=== PATIENT | male | born 1955 | race Caucasian/White ===

== ENCOUNTER 2017-10-20 13:54 | Inpatient (IN) | payer OTHER ==
[~2017-10-20] VITALS: Ht 160 cm; Wt 78.0 kg
[~2017-10-20 13:54] MED LIST: DOCU-150 PO; GEMF600T3 PO; LIRA0.6P2 SUBCUT; METF500T4 PO; ZET10 PO
[2017-10-21 00:14] LABS: CLARITY URINE CLEAR (CLEAR); COLOR URINE YELLOW (YELLOW); KETONES URINE NEGATIVE (NEGATIVE); LEUKOCYTE ESTERASE URINE NEGATIVE (NEGATIVE); NITRITE URINE NEGATIVE (NEGATIVE); OCCULT BLOOD URINE NEGATIVE (NEGATIVE); PH URINE 6.5 (4.5-8.0); PROTEIN URINE NEGATIVE (NEGATIVE); SPECIFIC GRAVITY URINE 1.022 (1.005-1.030); UROBILINOGEN URINE 0.2 E.U./dL (0.2-1.0)
[2017-10-21 00:19] LABS: BASOPHILS % 0.9 % (0.0-2.0); EOSINOPHILS % 1.6 % (0.0-5.0); HEMATOCRIT. 30.6 % (42.0-52.0); HEMOGLOBIN. 10.3 g/dL (14.0-18.0); LYMPHOCYTES % 21.9 % (20.0-50.0); MEAN CORPUSCULAR HEMOGLOBIN 29.6 pg (28.0-32.0); MEAN CORPUSCULAR VOLUME 87.8 fL (80.0-94.0); MEAN PLATELET VOLUME 7.5 fl (7.4-10.4); MONOCYTES % 9.3 % (2.0-8.0); NEUTROPHILS % 66.3 % (40.0-76.0); PLATELET 401 x1000/uL (130-400); RED BLOOD CELL COUNT 3.49 mill/uL (4.7-6.1); RED CELL DISTRIBUTION WIDTH 13.7 % (11.6-14.6)
[2017-10-21 00:34] LABS: CARBON DIOXIDE 28 mEq/L (21-32); CHLORIDE 101 mEq/L (98-107)
[2017-10-21] MEDS ORDERED: ENOXAPARIN 80MG/0.8ML SYR SUBCUT ONE (02:00)
[2017-10-21 08:30] VITALS: BP 126/88
[2017-10-21 09:30] VITALS: BP 126/88
[2017-10-21] MEDS: METFORMIN HCL 500MG TABLET PO SCH (11:06)
[2017-10-21] MEDS: EZETIMIBE 10MG TABLET PO SCH (11:06)
[2017-10-21] MEDS ORDERED: DEXTROSE 50% WATER 50ML SYRINGE IV PRN (11:15)
[2017-10-21 12:00] VITALS: BP 121/89
[2017-10-21 12:12] LABS: INR 1.1; PROTHROMBIN TIME 11.6 sec (9.4-11.6)
[2017-10-21] MEDS: BLOOD SUGAR DIAGNOSTIC STRIP TEST SCH ×3 (12:31→21:57)
[2017-10-21] MEDS: INSULIN LISPRO 100 UNITS/ML SUBCUT SCH ×3 (13:14→22:31)
[2017-10-21] MEDS: ENOXAPARIN 80MG/0.8ML SYR SUBCUT SCH (15:25)
[2017-10-21] MEDS: DOCUSATE SODIUM 100MG CAPSULE PO SCH (17:16)
[2017-10-21] MEDS: GEMFIBROZIL 600MG TABLET PO SCH (17:16)
[2017-10-21 17:19] VITALS: BP 124/83
[2017-10-21] MEDS ORDERED: VANCOMYCIN 1500MG in DEXTROSE 5% WATER 250ML IV SCH (18:30)
[2017-10-21 20:00] VITALS: BP 133/85
[2017-10-22] VITALS: BP 117/71
[2017-10-22 04:00] VITALS: BP 125/87
[2017-10-22] MEDS: VANCOMYCIN 750 MG PREMIX 150 ML IV SCH ×3 (04:07→22:35)
[2017-10-22] MEDS: ENOXAPARIN 80MG/0.8ML SYR SUBCUT SCH ×2 (07:07→14:26)
[2017-10-22] MEDS: BLOOD SUGAR DIAGNOSTIC STRIP TEST SCH ×4 (07:18→21:00)
[2017-10-22] MEDS: INSULIN LISPRO 100 UNITS/ML SUBCUT SCH ×4 (07:25→22:40)
[2017-10-22 08:00] VITALS: BP 127/88
[2017-10-22] MEDS: EZETIMIBE 10MG TABLET PO SCH (08:02)
[2017-10-22] MEDS: METFORMIN HCL 500MG TABLET PO SCH (08:02)
[2017-10-22] MEDS: DOCUSATE SODIUM 100MG CAPSULE PO SCH ×2 (08:02→17:15)
[2017-10-22] MEDS ORDERED: LIDOCAINE HCL 1% 20ML VIAL (Pyxis) INJ ONE (08:55)
[2017-10-22] MEDS ORDERED: SODIUM BICARBONATE 4% (2.4MEQ) 5ML VIAL IV ONE (08:55)
[2017-10-22 12:00] VITALS: BP 120/88
[2017-10-22 16:00] VITALS: BP 122/83
[2017-10-22] MEDS: GEMFIBROZIL 600MG TABLET PO SCH (17:15)
[2017-10-22 20:00] VITALS: BP 130/81
[2017-10-23] VITALS: BP 137/86
[2017-10-23 04:00] VITALS: BP 112/63
[2017-10-23 04:36] LABS: CARBON DIOXIDE 28 mEq/L (21-32); CHLORIDE 102 mEq/L (98-107); VANCOMYCIN TROUGH 20.9 ug/mL (5.0-10.0)
[2017-10-23] MEDS: BLOOD SUGAR DIAGNOSTIC STRIP TEST SCH ×3 (06:56→17:34)
[2017-10-23] MEDS: VANCOMYCIN 750 MG PREMIX 150 ML IV SCH ×2 (07:41→14:27)
[2017-10-23] MEDS: ENOXAPARIN 80MG/0.8ML SYR SUBCUT SCH ×2 (07:42→14:29)
[2017-10-23 08:00] VITALS: BP 120/87
[2017-10-23] MEDS: INSULIN LISPRO 100 UNITS/ML SUBCUT SCH ×3 (09:18→17:33)
[2017-10-23] MEDS: EZETIMIBE 10MG TABLET PO SCH (09:24)
[2017-10-23] MEDS: METFORMIN HCL 500MG TABLET PO SCH (09:24)
[2017-10-23] MEDS: DOCUSATE SODIUM 100MG CAPSULE PO SCH ×2 (09:24→17:10)
[2017-10-23 11:41] VITALS: BP 126/89
[2017-10-23 16:00] VITALS: BP 132/76
[2017-10-23] MEDS: GEMFIBROZIL 600MG TABLET PO SCH (17:28)
[2017-10-23 19:39] VITALS: BP 133/70
[2017-10-23] MEDS ORDERED: VANCOMYCIN 1 G PREMIX 200 ML IV SCH (23:30)
== END 2017-10-23 20:30 | disposition home or self-care (01) | DRG 299 ==
LOC: ER 16:01 → 6EST 10-21 02:26 → ENRESERV 10-21 07:04
PROVIDERS: ADMIT Internal Medicine; ATTEND Internal Medicine
PROC: 02HV33Z Insertion of Infusion Device into Superior Vena Cava, Percutaneous Approach (ICD-10-PCS; principal; 2017-10-22)
PROC: B5181ZA Fluoroscopy of Superior Vena Cava using Low Osmolar Contrast, Guidance (ICD-10-PCS; 2017-10-22)
PROC: B548ZZA Ultrasonography of Superior Vena Cava, Guidance (ICD-10-PCS; 2017-10-22)
PROC: 02PYX3Z Removal of Infusion Device from Great Vessel, External Approach (ICD-10-PCS; 2017-10-22)
DX: I82.621 Acute embolism and thrombosis of deep veins of right upper extremity (principal); J15.212 Pneumonia due to Methicillin resistant Staphylococcus aureus; E11.9 Type 2 diabetes mellitus without complications; E78.00 Pure hypercholesterolemia, unspecified; Z79.899 Other long term (current) drug therapy
CPT/HCPCS: 36415; 36569; 76937; 77001; 80048; 80053; 80202; 81001; 81003; 82962; 85025; 85610; 93971; 96372; 99285; C1725; J1650; J1815; J3370; J3490; J7040; J7060

== ENCOUNTER 2017-11-03 11:01 | Emergency (ER) | payer OTHER ==
[~2017-11-03] VITALS: Ht 167.6 cm; Wt 78.0 kg
[2017-11-03 11:27] VITALS: BP 138/90
== END 2017-11-03 15:40 | disposition home or self-care (01) ==
LOC: ER 11:21
DX: Z45.2 Encounter for adjustment and management of vascular access device (principal); E11.9 Type 2 diabetes mellitus without complications; E78.00 Pure hypercholesterolemia, unspecified; Z87.01 Personal history of pneumonia (recurrent)
CPT/HCPCS: 99281

== ENCOUNTER 2018-06-26 03:17 | Inpatient (IN) | payer OTHER ==
[~2018-06-26] VITALS: Ht 165.1 cm; Wt 87.1 kg
[~2018-06-26 03:17] MED LIST changes: -GEMF600T3 PO; +GEMF600T4 PO; -METF500T4 PO; +METF500T6 PO
[2018-06-26] MEDS ORDERED: KETOROLAC 30MG/ML VIAL IV STA (03:46)
[2018-06-26] MEDS ORDERED: ONDANSETRON HCL 4MG/2ML INJ IV STA (03:46)
[2018-06-26] MEDS ORDERED: SODIUM CHLORIDE 0.9% 1,000 ML IV ONE (03:46)
[2018-06-26] MEDS ORDERED: VANCOMYCIN 1 G PREMIX 200 ML IV ONE (04:00)
[2018-06-26] MEDS ORDERED: ACYCLOVIR INJ 750 MG in DEXT 5% WATER 125 ML IV SCH (04:00)
[2018-06-26] MEDS ORDERED: PIPERACILLIN/TAZ 3.375G PREMIX 50 ML IV ONE (04:00)
[2018-06-26 04:33] LABS: BASOPHILS % 0.6 % (0.0-2.0); EOSINOPHILS % 2.6 % (0.0-5.0); HEMATOCRIT. 39.1 % (42.0-52.0); HEMOGLOBIN. 13.5 g/dL (14.0-18.0); MEAN CORPUSCULAR HEMOGLOBIN 30.9 pg (28.0-32.0); MEAN CORPUSCULAR VOLUME 89.6 fL (80.0-94.0); MEAN PLATELET VOLUME 8.3 fl (7.4-10.4); MONOCYTES % 10.5 % (2.0-8.0); NEUTROPHILS % 67.3 % (40.0-76.0); PLATELET 264 x1000/uL (130-400); RED BLOOD CELL COUNT 4.37 mill/uL (4.7-6.1); RED CELL DISTRIBUTION WIDTH 12.7 % (11.6-14.6)
[2018-06-26 04:35] LABS: CHLORIDE 103 mEq/L (98-107); PROTHROMBIN TIME 10.4 sec (9.1-11.1)
[2018-06-26 04:39] LABS: ETHANOL BLOOD < 10 mg/dL
[2018-06-26] MEDS ORDERED: MORPHINE SULFATE 4 MG/ML CPJ (NOT FOR IM USE) IV ONE (05:45)
[2018-06-26 06:50] LABS: CLARITY URINE CLEAR (CLEAR); COLOR URINE YELLOW (YELLOW); KETONES URINE NEGATIVE (NEGATIVE); LEUKOCYTE ESTERASE URINE NEGATIVE (NEGATIVE); NITRITE URINE NEGATIVE (NEGATIVE); OCCULT BLOOD URINE NEGATIVE (NEGATIVE); PROTEIN URINE NEGATIVE (NEGATIVE); SPECIFIC GRAVITY URINE 1.021 (1.005-1.030); UROBILINOGEN URINE 0.2 E.U./dL (0.2-1.0)
[2018-06-26 07:36] LABS: *AMPHETAMINES SCREEN URINE NEGATIVE (NEGATIVE); *BARBITURATES SCREEN URINE NEGATIVE (NEGATIVE); CANNABINOID URINE SCREEN NEGATIVE (NEGATIVE); PHENCYCLIDINE URINE SCREEN NEGATIVE (NEGATIVE)
[2018-06-26 07:37] LABS: *BENZODIAZEPINES SCREEN URINE NEGATIVE (NEGATIVE); *COCAINE SCREEN URINE NEGATIVE (NEGATIVE); METHADONE URINE SCREEN NEGATIVE (NEGATIVE); OPIATES URINE SCREEN NEGATIVE (NEGATIVE)
[2018-06-26 08:30] VITALS: BP 108/71
[2018-06-26] MEDS ORDERED: PIOG30TA27 PO (08:33)
[2018-06-26] MEDS ORDERED: LEVO50TA8 PO (08:33)
[2018-06-26] MEDS ORDERED: ATOR-2 PO (08:33)
[2018-06-26] MEDS ORDERED: METF10004 PO (08:33)
[2018-06-26] MEDS ORDERED: HYDROMORPHONE HCL/PF 2MG/ML CPJ IV PRN (10:15)
[2018-06-26] MEDS ORDERED: DEXTROSE 50% WATER 50ML SYRINGE IV PRN (10:15)
[2018-06-26] MEDS ORDERED: HYDROCODONE/ACETAMINOPHEN 5/325MG TABLET PO PRN (10:15)
[2018-06-26] MEDS: LEVOTHYROXINE SODIUM 50MCG TABLET PO SCH (11:30)
[2018-06-26] MEDS: ENOXAPARIN 40MG/0.4ML SYR SUBCUT SCH (11:31)
[2018-06-26 12:00] VITALS: BP 143/86
[2018-06-26] MEDS: BLOOD SUGAR DIAGNOSTIC STRIP TEST SCH ×3 (12:05→21:22)
[2018-06-26] MEDS: INSULIN LISPRO 100 UNITS/ML SUBCUT SCH ×3 (12:51→21:13)
[2018-06-26] MEDS: ACYCLOVIR 400 MG TABLET PO SCH ×2 (12:51→17:57)
[2018-06-26] MEDS: SODIUM CHLORIDE 0.9% INJ 3ML FLUSH IVF SCH ×2 (12:52→21:21)
[2018-06-26] MEDS: GABAPENTIN 300MG CAPSULE PO SCH ×2 (12:52→21:22)
[2018-06-26] MEDS: DIPHENHYDRAMINE 50MG/ML VIAL IV SCH ×2 (14:05→17:57)
[2018-06-26 16:00] VITALS: BP 132/91
[2018-06-26] MEDS: GEMFIBROZIL 600MG TABLET PO SCH (17:57)
[2018-06-26 20:47] VITALS: BP 111/64
[2018-06-26] MEDS: INSULIN GLARGINE UD 100 UNITS/ML SYR SUBCUT SCH (21:13)
[2018-06-26] MEDS: ATORVASTATIN CALCIUM 40MG TABLET PO SCH (21:21)
[2018-06-26] MEDS: ACETAMINOPHEN 325MG TABLET PO PRN (21:21)
[2018-06-26] MEDS: FAMOTIDINE 20MG/2ML VIAL IV SCH (21:22)
[2018-06-26 23:29] LABS: T4 FREE 0.86 ng/dL (0.76-1.46)
[2018-06-27 00:34] VITALS: BP 125/80
[2018-06-27] MEDS: DIPHENHYDRAMINE 50MG/ML VIAL IV SCH ×5 (00:49→23:01)
[2018-06-27 04:38] VITALS: BP 115/61
[2018-06-27 05:43] LABS: BASOPHILS % 0.7 % (0.0-2.0); HEMATOCRIT. 38.2 % (42.0-52.0); HEMOGLOBIN. 13.1 g/dL (14.0-18.0); LYMPHOCYTES % 18.2 % (20.0-50.0); MEAN CORPUSCULAR HEMOGLOBIN 31.1 pg (28.0-32.0); MEAN PLATELET VOLUME 8.9 fl (7.4-10.4); MONOCYTES % 9.3 % (2.0-8.0); NEUTROPHILS % 70.8 % (40.0-76.0); PLATELET 234 x1000/uL (130-400); RED CELL DISTRIBUTION WIDTH 12.6 % (11.6-14.6)
[2018-06-27] MEDS: BLOOD SUGAR DIAGNOSTIC STRIP TEST SCH ×4 (05:44→21:15)
[2018-06-27] MEDS: GABAPENTIN 300MG CAPSULE PO SCH ×3 (05:46→21:14)
[2018-06-27] MEDS: ACYCLOVIR 400 MG TABLET PO SCH ×5 (05:46→21:15)
[2018-06-27] MEDS: SODIUM CHLORIDE 0.9% INJ 3ML FLUSH IVF SCH ×3 (05:47→21:15)
[2018-06-27] MEDS: LEVOTHYROXINE SODIUM 50MCG TABLET PO SCH (06:24)
[2018-06-27] MEDS: INSULIN LISPRO 100 UNITS/ML SUBCUT SCH ×4 (07:50→21:16)
[2018-06-27] MEDS: FAMOTIDINE 20MG/2ML VIAL IV SCH ×2 (08:24→21:15)
[2018-06-27] MEDS: GEMFIBROZIL 600MG TABLET PO SCH ×2 (08:24→17:19)
[2018-06-27] MEDS: ENOXAPARIN 40MG/0.4ML SYR SUBCUT SCH (08:36)
[2018-06-27 11:46] VITALS: BP 131/85
[2018-06-27] MEDS: INSULIN GLARGINE UD 100 UNITS/ML SYR SUBCUT SCH ×2 (12:03→22:03)
[2018-06-27] MEDS: CEFTRIAXONE 1 G PREMIX 50 ML IV SCH (16:28)
[2018-06-27] MEDS ORDERED: VANCOMYCIN 1500MG in DEXTROSE 5% WATER 250ML IV NR (17:00)
[2018-06-27 20:15] VITALS: BP 135/90
[2018-06-27] MEDS: ATORVASTATIN CALCIUM 40MG TABLET PO SCH (21:14)
[2018-06-27] MEDS: ACETAMINOPHEN 325MG TABLET PO PRN (21:15)
[2018-06-27 23:43] VITALS: BP 111/81
[2018-06-28 04:00] VITALS: BP 130/65
[2018-06-28] MEDS: VANCOMYCIN 750 MG PREMIX 150 ML IV SCH ×2 (04:12→17:06)
[2018-06-28] MEDS: ACYCLOVIR 400 MG TABLET PO SCH ×4 (05:14→17:06)
[2018-06-28] MEDS: SODIUM CHLORIDE 0.9% INJ 3ML FLUSH IVF SCH ×2 (05:14→14:00)
[2018-06-28] MEDS: DIPHENHYDRAMINE 50MG/ML VIAL IV SCH ×3 (05:14→17:06)
[2018-06-28] MEDS: GABAPENTIN 300MG CAPSULE PO SCH ×2 (05:14→15:19)
[2018-06-28] MEDS: BLOOD SUGAR DIAGNOSTIC STRIP TEST SCH ×3 (06:18→17:06)
[2018-06-28 06:21] LABS: BASOPHILS % 0.8 % (0.0-2.0); EOSINOPHILS % 1.7 % (0.0-5.0); HEMATOCRIT. 35.5 % (42.0-52.0); HEMOGLOBIN. 12.2 g/dL (14.0-18.0); LYMPHOCYTES % 20.2 % (20.0-50.0); MEAN CORPUSCULAR HEMOGLOBIN 31.1 pg (28.0-32.0); MEAN CORPUSCULAR VOLUME 90.2 fL (80.0-94.0); MEAN PLATELET VOLUME 8.6 fl (7.4-10.4); MONOCYTES % 8.3 % (2.0-8.0); PLATELET 242 x1000/uL (130-400); RED BLOOD CELL COUNT 3.94 mill/uL (4.7-6.1); RED CELL DISTRIBUTION WIDTH 12.7 % (11.6-14.6)
[2018-06-28] MEDS: LEVOTHYROXINE SODIUM 50MCG TABLET PO SCH (06:25)
[2018-06-28 06:58] LABS: CHLORIDE 104 mEq/L (98-107)
[2018-06-28] MEDS: INSULIN LISPRO 100 UNITS/ML SUBCUT SCH ×3 (07:50→17:09)
[2018-06-28 08:00] VITALS: BP 119/82
[2018-06-28] MEDS: FAMOTIDINE 20MG/2ML VIAL IV SCH (09:07)
[2018-06-28] MEDS: ENOXAPARIN 40MG/0.4ML SYR SUBCUT SCH (09:07)
[2018-06-28] MEDS: GEMFIBROZIL 600MG TABLET PO SCH ×2 (09:07→17:06)
[2018-06-28] MEDS: INSULIN GLARGINE UD 100 UNITS/ML SYR SUBCUT SCH (10:05)
[2018-06-28 12:00] VITALS: BP 131/87
[2018-06-28] MEDS: CEFTRIAXONE 1 G PREMIX 50 ML IV SCH (15:19)
[2018-06-28 16:00] VITALS: BP 117/80
[2018-06-28] MEDS ORDERED: SULFAMETHOXAZOLE/TRIMETHOPRIM 400/80MG TAB PO NR (18:00)
[2018-06-28 18:21] VITALS: BP 117/80
== END 2018-06-28 19:29 | disposition home or self-care (01) | DRG 596 ==
LOC: ER 03:17 → 6WST 05:51 → EDBEDREQTM 05:59 → EDBEDREQ 05:59 → ENRESERV 07:07
PROVIDERS: ADMIT Internal Medicine; ATTEND Internal Medicine
DX: B02.9 Zoster without complications (principal); L03.211 Cellulitis of face; E03.9 Hypothyroidism, unspecified; I10 Essential (primary) hypertension; E11.9 Type 2 diabetes mellitus without complications; E66.9 Obesity, unspecified; E78.00 Pure hypercholesterolemia, unspecified; E78.5 Hyperlipidemia, unspecified; M71.22 Synovial cyst of popliteal space [Baker], left knee; B95.62 Methicillin resistant Staphylococcus aureus infection as the cause of diseases classified elsewhere; Z86.14 Personal history of Methicillin resistant Staphylococcus aureus infection; Z87.01 Personal history of pneumonia (recurrent); Z79.84 Long term (current) use of oral hypoglycemic drugs; Z79.899 Other long term (current) drug therapy; Z68.32 Body mass index [BMI] 32.0-32.9, adult
CPT/HCPCS: 36415; 70486; 71045; 80048; 80053; 80305; 81003; 82962; 83605; 83880; 84439; 84443; 84484; 85025; 85610; 87040; 87086; 93005; 96365; 96367; 96375; 99285; G0482; J0133; J0696; J1200; J1650; J1815; J1885; J2270; J2405; J2543; J3370; J3490; J7030; J7050; J7060

== ENCOUNTER 2023-08-20 08:01 | Inpatient (IN) | payer BC, MEDICARE ==
[~2023-08-20] VITALS: Ht 154.9 cm; Wt 85.3 kg
[~2023-08-20 08:01] MED LIST changes: +ATOR-2 PO; -DOCU-150 PO; -GEMF600T4 PO; +GEMF600T90 PO; +LEVO50TA8 PO; +METF-416 PO; -METF500T6 PO; +PIOG30TA71 PO; -ZET10 PO
[2023-08-20 08:19] VITALS: O2SAT 95
[2023-08-20] MEDS ORDERED: KETOROLAC 15MG/ML VIAL IM NR (08:45)
[2023-08-20] MEDS ORDERED: SODIUM CHLORIDE 0.9% 1,000 ML IV ONE (09:00)
[2023-08-20 09:18] LABS: HEMATOCRIT. 37.9 % (42.0-52.0); HEMOGLOBIN. 12.8 g/dL (14.0-18.0); MEAN CORPUSCULAR HEMOGLOBIN 30.2 pg (28.0-32.0); MEAN CORPUSCULAR HGB CONC 33.7 g/dL (31.0-37.0); MEAN CORPUSCULAR VOLUME 89.6 fL (80.0-94.0); PLATELET 304 x1000/uL (130-400); RED BLOOD CELL COUNT 4.23 mill/uL (4.7-6.1); RED CELL DISTRIBUTION WIDTH 13.1 % (11.6-14.6); WHITE BLOOD COUNT 14.4 x1000/uL (4.5-11.0)
[2023-08-20 09:25] LABS: CHLORIDE 101 mEq/L (98-107); INDEX HEMOLYSI 1 (1-3); INDEX ICTERIC 1 (1-4); INDEX LIPEMIC 1 (1-3); POTASSIUM 3.7 mEq/L (3.5-5.1); SODIUM 134 mEq/L (136-145)
[2023-08-20 09:27] LABS: DIFFERENTIAL COMMENT 1
[2023-08-20 09:35] LABS: ALANINE AMINOTRANSFERASE 33 IU/L (13-61); ALBUMIN 3.3 g/dL (3.4-5.0); ASPARTATE AMINOTRANSFERASE 22 IU/L (15-37); CALCIUM 8.9 mg/dL (8.5-10.1); CARBON DIOXIDE 24 mEq/L (21-32); CREATININE 0.9 mg/dL (0.6-1.3); GLUCOSE 276 mg/dL (70-105); PROTEIN TOTAL 7.6 g/dL (6.0-8.3); TROPONIN I HIGH SENSITIVITY 23 ng/L (<78); UREA NITROGEN BLOOD 13 mg/dL (7-21)
[2023-08-20 09:49] LABS: PLATELET ESTIMATE NORMAL
[2023-08-20 10:21] LABS: INR 1.1; PROTHROMBIN TIME 11.6 sec (9.6-11.0)
[2023-08-20] MEDS ORDERED: AMOXICILLIN/POTASSIUM CLAVULANATE 875/125MG TAB PO ONE (11:30)
[2023-08-20] MEDS ORDERED: AZITHROMYCIN 500 MG TABLET PO ONE (11:30)
[2023-08-20 11:41] LABS: TROPONIN I HIGH SENSITIVITY 25 ng/L (<78)
[2023-08-20 14:35] VITALS: BP 136/81; PULSE 64; RESP 18; TEMP 98.2
[2023-08-20 16:00] VITALS: BP 152/69; PULSE 63; RESP 18; TEMP 98.2
[2023-08-20] MEDS ORDERED: CEFTRIAXONE 1GM PREMIX 50 ML IV SCH (16:15)
[2023-08-20] MEDS: CEFTRIAXONE 1,000 MG in DEXTROSE 5% WATER 50 ML IV SCH (18:35)
[2023-08-20 20:00] VITALS: BP 110/69; PULSE 77; RESP 16; TEMP 97.7
[2023-08-21] VITALS: BP 124/62; PULSE 62; TEMP 97.2
[2023-08-21 04:00] VITALS: BP 130/69; PULSE 54; RESP 20; TEMP 98.7
[2023-08-21 08:00] VITALS: BP 115/78; PULSE 70; RESP 18; TEMP 97.1
[2023-08-21] MEDS ORDERED: AZITHROMYCIN 500 MG TABLET PO SCH (09:00)
[2023-08-21 12:00] VITALS: BP 140/77; PULSE 75; RESP 18; TEMP 97
[2023-08-21] MEDS ORDERED: ENOXAPARIN 30MG/0.3ML SYR SUBCUT SCH (13:30)
[2023-08-21] MEDS ORDERED: ENOXAPARIN 40MG/0.4ML SYR SUBCUT SCH (13:30)
[2023-08-21 16:00] VITALS: BP 162/84; PULSE 75; RESP 18; TEMP 98.3
[2023-08-21] MEDS: CEFTRIAXONE 1,000 MG in DEXTROSE 5% WATER 50 ML IV SCH (17:42)
[2023-08-21 18:47] VITALS: BP 162/84; PULSE 75; TEMP 98.3
== END 2023-08-21 19:09 | disposition home or self-care (01) | DRG 206 ==
LOC: ER 08:18 → 7WST 11:26 → EDBEDREQ 11:27 → EDBEDREQTM 11:27
PROVIDERS: ADMIT Internal Medicine; ATTEND Internal Medicine
DX: R09.02 Hypoxemia (principal); D72.829 Elevated white blood cell count, unspecified; E03.9 Hypothyroidism, unspecified; E11.9 Type 2 diabetes mellitus without complications; I10 Essential (primary) hypertension; E78.00 Pure hypercholesterolemia, unspecified; Z79.4 Long term (current) use of insulin
CPT/HCPCS: 36415; 71045; 80053; 83605; 83735; 83880; 84145; 84484; 85025; 85379; 87426; 87804; 93005; 99285; C9803; J0696; J1650; J1885; J7060

== ENCOUNTER 2024-01-03 19:38 | Emergency (ER) | payer BC, MEDICARE ==
[~2024-01-03] VITALS: Ht 162.6 cm; Wt 83.5 kg
[2024-01-03 19:48] VITALS: O2SAT 97
[2024-01-03 21:06] LABS: BASOPHILS % 0.9 % (0.0-2.0); EOSINOPHILS % 2.8 % (0.0-5.0); HEMATOCRIT. 38.2 % (42.0-52.0); HEMOGLOBIN. 12.8 g/dL (14.0-18.0); LYMPHOCYTES % 16.6 % (20.0-50.0); MEAN CORPUSCULAR HEMOGLOBIN 30.4 pg (28.0-32.0); MEAN CORPUSCULAR HGB CONC 33.5 g/dL (31.0-37.0); MEAN CORPUSCULAR VOLUME 90.7 fL (80.0-94.0); MEAN PLATELET VOLUME 8.5 fl (7.4-10.4); MONOCYTES % 6.6 % (2.0-8.0); NEUTROPHILS % 73.1 % (40.0-76.0); PLATELET 329 x1000/uL (130-400); RED BLOOD CELL COUNT 4.21 mill/uL (4.7-6.1); WHITE BLOOD COUNT 6.2 x1000/uL (4.5-11.0)
[2024-01-03 21:25] LABS: ALANINE AMINOTRANSFERASE 15 IU/L (10-49); ALBUMIN 4.1 g/dL (3.2-4.8); ASPARTATE AMINOTRANSFERASE 19 IU/L (<34); BILIRUBIN TOTAL 0.7 mg/dL (0.1-1.0); CALCIUM 8.2 mg/dL (8.7-10.4); CARBON DIOXIDE 23 mEq/L (21-32); CHLORIDE 107 mEq/L (98-107); GLUCOSE 241 mg/dL (70-105); POTASSIUM 3.7 mEq/L (3.5-5.1); PROTEIN TOTAL 6.5 g/dL (6.0-8.3); SODIUM 136 mEq/L (136-145); UREA NITROGEN BLOOD 13 mg/dL (9-23)
[2024-01-04] VITALS: TEMP 98.4
[2024-01-04 00:53] LABS: CLARITY URINE CLEAR (CLEAR); COLOR URINE YELLOW (YELLOW); GLUCOSE URINE 1+ (NEGATIVE); KETONES URINE NEGATIVE (NEGATIVE); LEUKOCYTE ESTERASE URINE TRACE (NEGATIVE); NITRITE URINE NEGATIVE (NEGATIVE); OCCULT BLOOD URINE NEGATIVE (NEGATIVE); PH URINE 5.5 (4.5-8.0); PROTEIN URINE NEGATIVE (NEGATIVE); SPECIFIC GRAVITY URINE 1.016 (1.005-1.030)
[2024-01-04] MEDS ORDERED: CLOT15CR27 TP (01:13)
[2024-01-04] MEDS ORDERED: CEPH500C2 MT (01:13)
[2024-01-04] MEDS ORDERED: FLUC150T46 PO (01:13)
[2024-01-04 01:28] LABS: BACTERIA URINE NONE SEEN; RBC URINE NONE SEEN /hpf (0-2); SQUAMOUS EPITHELIAL CELL URINE NONE SEEN /lpf (RARE/1+); WBC URINE NONE SEEN /hpf (0-2)
[2024-01-04 01:43] VITALS: BP 134/78; PULSE 60; RESP 18
== END 2024-01-04 01:58 | disposition home or self-care (01) ==
LOC: ER 19:38
DX: N48.1 Balanitis (principal); E11.9 Type 2 diabetes mellitus without complications; E78.00 Pure hypercholesterolemia, unspecified
CPT/HCPCS: 36415; 80053; 81003; 85025; 99283